=== PATIENT | male | born 1930 | race Caucasian/White ===

== ENCOUNTER 2016-10-13 12:59 | Emergency (ER) | payer MEDICARE, MEDICAID ==
[~2016-10-13] VITALS: Ht 167.6 cm; Wt 72.7 kg
[~2016-10-13 12:59] MED LIST: ACET500C9; AML2.5T; AMLO2.5T PO; ASP81TEC; ASP81TEC PO; ATOR40TA; ATOR40TA PO; BENZ-13 PO; CLPD75T; CLPD75T PO; ECON1POW; HYDR-707 PO; KCL20TCR; LISI10TA PO; LNS30CCR; LORA10TA2; LORA10TA7 PO; LSNP10T; LVT.025T PO; METO100T5 PO; MTP100TCR; MULT1TAB63; NITR0.3T6 SL; NITR0.4T SL; NTR.4SL; OMEP-10; OMEP20CA12 PO; ONDA4TAB8 PO; PNT40TEC PO; POTA20TA15 PO; RT-ALBUINH IH; RT-COMBINH; RT-COMBINH IH; SCR1T1 PO; SULF1TAB38 PO
[2016-10-13] MEDS ORDERED: ASPIRIN 81 MG CHEW (CHILDREN'S ASA) PO ONE (13:15)
[2016-10-13] MEDS ORDERED: RX-NITROGLYCERIN 0.4 MG TAB BTL 25'S SL ONE (13:15)
--- NOTE | 2016-10-13 13:29 | ED Chest Pain ---
General Chief Complaint: Chest Pain Stated Complaint: CP Source: patient, EMS, caregiver Exam Limitations: no limitations History of Present Illness Time seen by provider: 13:04 Initial Comments Here with report of onset of chest pain after noon today near his lunch time. He was given nitroglycerin sublingual which did help his pain. Currently he has this intermittently. Caregiver reports that he has not had much this month ago. Usually takes nitroglycerin. Now reports that that did help but the chest pain is coming back. That is not necessarily typical for him. Denies shortness of breath or vomiting or sweating. Timing/Duration: 1 hour Severity/Quality: moderate, pressure Location: central Radiation: no radiation Activities at Onset: none ASA po SENIOR CARE ASSISTANT: Yes NTG SL SENIOR CARE ASSISTANT: Yes Associated Symptoms: No abdominal pain, No diaphoresis, No nausea/vomiting, No shortness of breath, No weakness Allergies and Home Medications Allergies Coded Allergies: No Known Drug Allergies (Verified , 01/19/09) Home Medications Albuterol Sulfate 8.5 Gm Hfa.aer.ad 2 PUFF IH Q4H PRN PRN WHEEZING (Reported) Albuterol Sulfate 18 Gm Hfa.aer.ad #1 1-2 PUFF IH Q4H PRN PRN SHORTNESS OF BREATH Prescribed by: JACOB POP on 06/29/16 1240 Amlodipine Besylate 2.5 Mg Tablet 5 MG PO BID (Reported) Aspirin 81 Mg Tabec 81 MG PO DAILY (Reported) Benzonatate 100 Mg Capsule #30 100 MG PO Q6H PRN PRN COUGH Prescribed by: JACOB POP on 06/29/16 1240 Clopidogrel 75 Mg Tablet 1 EACH PO DAILY (Reported) Levothyroxine Sodium 25 Mcg Tablet 1 EACH PO DAILY (Reported) Lisinopril 10 Mg Tablet 20 MG PO DAILY (Reported) Loratadine 10 Mg Tablet 10 MG PO DAILY PRN (Reported) Metoprolol Succinate 100 Mg Tab.sr.24h 1 EACH PO DAILY (Reported) Nitroglycerin 0.4 Mg Tab.subl #1 0.4 MG SL Q15M PRN PRN chest pain Prescribed by: JACOB POP on 06/29/16 1240 Pantoprazole Sod 40 Mg Tab 30Days 40 MG PO DAILY (Reported) Potassium Chloride 20 Meq Tab.prt.sr 20 MEQ PO DAILY (Reported) Review of Systems Constitutional: see HPINo chills, No fever EENTM: No Symptoms Reported Respiratory: No Symptoms Reported Cardiovascular: See HPI Chest PainDenies Edema Gastrointestinal: No Symptoms Reported Genitourinary: No Symptoms Reported Musculoskeletal: no symptoms reported All Other Systems Reviewed Negative Unless Noted: Yes Past Ofyobhq-Xwymsj-Avyjmg Hx Patient Social History Alcohol Use: Denies Use Recreational Drug Use: No Smoking Status: Unknown if Ever Smoked Former Smoker/When Quit: Nov 04, 2001 Recent Hopitalizations: No (2 yrs ago) Immunizations Up To Date Tetanus Booster (TDap): Unknown Date of Pneumonia Vaccine: May 05, 2011 Date of Influenza Vaccine: May 05, 2011 Surgeries HX Surgeries: Yes (GB 1998.HIATAL HERNIA 2005,CARDIAC CATH, EGD/SCELROTHERAPY FOR M-MANSFIELD TEAR) Surgeries: Abdominal, Cardiac, Gallbladder Respiratory Hx Respiratory Disorders: Yes Respiratory Disorders: COPD Cardiovascular Hx Cardiac Disorders: Yes (CAROTID STENOSIS) Cardiac Disorders: Coronary Artery Disease, High Cholesterol, Hypertension Neurological Hx Neurological Disorders: Yes (MR) Neurological Disorders: Developmental Disorder Reproductive System Hx Reproductive Disorders: No Sexually Transmitted Disease: No HIV/AIDS: No Genitourinary Hx Genitourinary Disorders: No Gastrointestinal Hx Gastrointestinal Disorders: Yes (SCLEROTHERAPY FOR K[place]-MAN[place]FIELD TEAR) Gastrointestinal Disorders: Gastroesophageal Reflux, Gastrointestinal Bleed, Esophagitis, Hiatal Hernia, Gall Bladder Disease Musculoskeletal Hx Musculoskeletal Disorders: Yes Musculoskeletal Disorders: Arthritis Endocrine Hx Endocrine Disorders: Yes Endocrine Disorders: Hypothyroidsim HEENT HX ENT Disorders: Yes (SENSORINERUAL HEARING LOSS) Hearing Impairment: Denies Cancer Hx Cancer: No Psychosocial Hx Psychiatric Problems: Yes (MENTAL IMPAIRMENT) Integumentary HX Skin/Integumentary Disorder: No Blood Transfusions Hx Blood Disorders: No Reviewed Nursing Assessment Reviewed/Agree w Nursing PMH: Yes Family Medical History Significant Family History: No Pertinent Family Hx Physical Exam Vital Signs Vital Sign - Last 12Hours Capillary Refill : General Appearance: No Apparent Distress Thin HEENT: PERRL/EOMI Pharynx Normal Neck: Non Tender Supple Respiratory: Lungs Clear Normal Breath Sounds Cardiovascular: Regular Rate, Rhythm No Murmur Gastrointestinal: Non Tender Soft Extremity: Non Tender No Calf Tenderness Neurologic/Psychiatric: Alert Oriented x3 Skin: Normal Color Warm/Dry Progress/Results/Core Measures Results/Orders Lab Results Laboratory Tests Test 10/13/16 13:20 Range/Units Activated Partial Thromboplast Time 29 24-35 SEC Alanine Aminotransferase (ALT/SGPT) 12 0-55 U/L Albumin 3.7 3.2-4.5 G/DL Alkaline Phosphatase 80 40-136 U/L Anion Gap 12 5-14 MMOL/L Aspartate Amino Transf (AST/SGOT) 19 5-34 U/L BUN/Creatinine Ratio 14 Basophils # (Auto) 0.0 0.0-0.1 10^3/uL Basophils (%) (Auto) 0 0-10 % Blood Urea Nitrogen 14 7-18 MG/DL Calcium Level 8.5 8.5-10.1 MG/DL Carbon Dioxide Level 21 21-32 MMOL/L Chloride Level 106 98-107 MMOL/L Creatinine 1.00 0.60-1.30 MG/DL D-Dimer 0.97 H 0.00-0.49 UG/ML Eosinophils # (Auto) 0.2 0.0-0.3 10^3/uL Eosinophils (%) (Auto) 3 0-10 % Estimat Glomerular Filtration Rate > 60 Glucose Level 190 H 70-105 MG/DL Hematocrit 39 L 40-54 % Hemoglobin 13.0 L 13.3-17.7 G/DL INR Comment 1.1 0.8-1.4 Lymphocytes # (Auto) 1.8 1.0-4.0 X 10^3 Lymphocytes (%) (Auto) 25 12-44 % Magnesium Level 2.0 1.8-2.4 MG/DL Mean Corpuscular Hemoglobin 29 25-34 PG Mean Corpuscular Hemoglobin Concent 33 32-36 G/DL Mean Corpuscular Volume 87 80-99 FL Mean Platelet Volume 10.8 H 7.4-10.4 FL Monocytes # (Auto) 0.5 0.0-1.0 X 10^3 Monocytes (%) (Auto) 6 0-12 % Myoglobin 37.2 10.0-92.0 NG/ML Neutrophils # (Auto) 4.8 1.8-7.8 X 10^3 Neutrophils (%) (Auto) 66 42-75 % Platelet Count 215 130-400 10^3/uL Potassium Level 3.5 L 3.6-5.0 MMOL/L Prothrombin Time 13.5 12.2-14.7 SEC Red Blood Count 4.51 4.35-5.85 10^6/uL Red Cell Distribution Width 14.9 H 10.0-14.5 % Sodium Level 139 135-145 MMOL/L Total Bilirubin 0.7 0.1-1.0 MG/DL Total Protein 6.7 6.4-8.2 G/DL Troponin I < 0.30 <0.30 NG/ML White Blood Count 7.4 4.3-11.0 10^3/uL My Orders Orders-GABRIEL CLARK MD Cbc With Automated Diff (10/13/16 13:13) Magnesium (10/13/16 13:13) Chest 1 View, Ap/Pa Only (10/13/16 13:13) Ekg Tracing (10/13/16 13:13) Cardiac Profile 1 (10/13/16 13:13) Comprehensive Metabolic Panel (10/13/16 13:13) Myoglobin Serum (10/13/16 13:13) Protime With Inr (10/13/16 13:13) Partial Thromboplastin Time (10/13/16 13:13) O2 (10/13/16 13:13) Monitor-Rhythm Ecg Trace Only (10/13/16 13:13) Lipid Panel (10/14/16 06:00) Aspirin Chewable Tablet (Baby Aspirin Ch (10/13/16 13:15) Rx-Nitroglycerin Sl Tabs (Rx-Nitrostat S (10/13/16 13:15) Saline Lock/Iv-Start (10/13/16 13:13) Fibrin Degradation Products (10/13/16 13:13) Ct Angio Chest W (10/13/16 14:40) Saline Lock/Iv-Start (10/13/16 14:40) Ns Iv 1000 Ml (Sodium Chloride 0.9%) (10/13/16 14:40) Iohexol Injection (Omnipaque 350 Mg/Ml 1 (10/13/16 14:45) Ns (Ivpb) (Sodium Chloride 0.9% Ivpb Bag (10/13/16 14:45) Sodium Chloride Flush (Catheter Flush Sy (10/13/16 14:45) Medications Given in ED Current Medications Medications Dose Ordered Sig/Niya Route Start Time Stop Time Status Last Admin Dose Admin Aspirin 324 mg ONCE ONCE PO 10/13/16 13:15 10/13/16 13:16 DC 10/13/16 13:30 324 MG Iohexol 150 ml ONCE ONCE IV 10/13/16 14:45 10/13/16 14:46 DC 10/13/16 15:02 125 ML Nitroglycerin 0.4 mg 0.4 mg UD ONCE SL 10/13/16 13:15 10/13/16 13:16 DC 10/13/16 13:30 0.4 MG Sodium Chloride 100 ml ONCE ONCE IV 10/13/16 14:45 10/13/16 14:46 DC 10/13/16 15:03 80 ML Sodium Chloride 1,000 ml @ 0 mls/hr Q0M ONCE IV 10/13/16 14:40 10/13/16 14:41 DC 10/13/16 14:55 0 MLS/HR Vital Signs/I&O Vital Sign - Last 12Hours 10/13/16 10/13/16 10/13/16 13:00 13:00 13:00 Temp 98.1 Pulse 75 Resp 20 B/P 158/100 Pulse Ox 92 95 O2 Delivery Room Air Room Air Nasal Cannula O2 Flow Rate 2 2 Progress Note : Progress Note Seen and evaluated. IV, labs, EKG and chest x-ray ordered. ASA and nitroglycerin sublingual ordered. Monitor patient. D-dimer slightly elevated. Will saline [address] angiogram chest ordered. 1600: No acute findings. CT negative for pulmonary embolism and patient is doing much better. Does have known intermittent angina and nitroglycerin prescribed. His heart doctor is Dr. Ventura. We'll discharge him home with follow-up with Dr. Ventura this week. Copy of chart to Dr. Ventura. Caregiver given instructions and verbalizes understanding. Discharged home with return precautions. Patient verbalize understanding instructions and agreement with plan. ECG Initial ECG Impression Date: Oct 13, 2016 Initial ECG Impression Time: 13:08 Initial ECG Rate: 77 Comment Sinus rhythm with normal axis. No evidence of ST elevation OH. Overall similar to previous of 06/29/16. Interpreted by me. Diagnostic Imaging Diagonstic Imaging: Xray Plain Films/CT/US/NM/MRI: chest Comments VIA [facility], [facility] [place], [place] NAME: NAMRATA CARLOS [facility] REC#: [id number] PT STATUS: REG ER : 1930 PHYSICIAN: GABRIEL CLARK MD ADMIT DATE: 10/13/16/ER Draft Date of Exam:10/13/16 CHEST 1 VIEW, AP/PA ONLY INDICATION: Chest pain. TECHNIQUE: Single view chest 1:35 PM. CORRELATION STUDY: 06/29/2016 FINDINGS: Heart size enlarged with left ventricular configuration. Vascular slightly increased from prior study. Areas of likely atelectasis at both lung bases without definitive focal infiltrate. Degenerative change of the right shoulder. IMPRESSION: 1. Cardiac enlargement with vascular slightly increased from prior study. Minimal basilar atelectasis. Dictated on workstation # [id number] Dict: 10/13/16 1344 Trans: 10/13/16 1436 JUAN ALBERTO [id number] Interpreted by: LORENA BABB DO Electronically signed by: Óscar Imaging: CT Plain Films/CT/US/NM/MRI: chest Comments VIA [place], [place] NAME: NAMRATA CARLOS [facility] REC#: [id number] PT STATUS: REG ER : 1930 PHYSICIAN: GABRIEL CLARK MD ADMIT DATE: 10/13/16/ER Draft Date of Exam:10/13/16 CT ANGIO CHEST W PROCEDURE: CT angiography of the chest with contrast. TECHNIQUE: Multiple contiguous axial images were obtained through the chest after uneventful bolus administration of intravenous contrast. Reconstructed CTA MIP acquisitions were also performed. INDICATION: Chest pain. CORRELATION STUDY: 06/05/2007. FINDINGS: No pulmonary arterial filling defect to suggest pulmonary embolism. Thoracic aorta id unremarkable. Heart size is enlarged. Moderate-sized hiatal hernia. Calcified mediastinal lymph nodes. Lung barajas with minimal basilar atelectasis. No significant infiltrate. Visualized portion of the upper abdomen is unremarkable. Multiple level degenerative changes about the thoracic spine with bony demineralization. IMPRESSION: 1. No CT evidence for pulmonary embolism. Thoracic aorta is unremarkable. 2. Cardiac enlargement. 3. Moderate-sized hiatal hernia. Dictated on workstation # [id number] Dict: 10/13/16 1547 Trans: 10/13/16 1557 PJ [id number] Interpreted by: LORENA BABB DO Electronically signed by: Departure Impression Impression: Primary Impression: Chest pain Qualified Code: R07.9 - Chest pain, unspecified Disposition: 01 HOME, SELF-CARE Condition: Improved Departure-Patient Inst. Decision time for Depature: 16:24 Referrals: [facility] (PCP/Family) Primary Care Physician ARTHUR VENTURA MD Patient Instructions: Chest Pain (DC) Add. Discharge Instructions: All discharge instructions reviewed with patient and/or family. Voiced understanding. It is very important that he follow up with Dr. Ventura this week for recheck and further evaluation. Return for worse pain, persistent chest pain, weakness, breathing problems, sweating or other concerns as needed. Continue home medications as directed. Copy Copies To 1: ARTHUR VENTURA MD, TIMOTHY D MD Oct 13, 2016 13:29
[2016-10-13 13:32] LABS: BASOPHILS % (AUTO) 0 % (0-10); EOSINOPHILS # (AUTO) 0.2 10^3/uL (0.0-0.3); EOSINOPHILS % (AUTO) 3 % (0-10); LYMPHOCYTES # (AUTO) 1.8 X 10^3 (1.0-4.0); LYMPHOCYTES % (AUTO) 25 % (12-44); MEAN CORPUSCULAR HEMOGLOBIN 29 PG (25-34); MEAN CORPUSCULAR HGB CONC 33 G/DL (32-36); MEAN CORPUSCULAR VOLUME 87 FL (80-99); MEAN PLATELET VOLUME 10.8 FL (7.4-10.4); MONOCYTES # (AUTO) 0.5 X 10^3 (0.0-1.0); MONOCYTES % (AUTO) 6 % (0-12); NEUTROPHILS # (AUTO) 4.8 X 10^3 (1.8-7.8); NEUTROPHILS % (AUTO) 66 % (42-75); PLATELET COUNT 215 10^3/uL (130-400); RED BLOOD COUNT 4.51 10^6/uL (4.35-5.85); RED CELL DISTRIBUTION WIDTH 14.9 % (10.0-14.5); WHITE BLOOD COUNT 7.4 10^3/uL (4.3-11.0)
[2016-10-13 13:41] LABS: INR 1.1 (0.8-1.4); PROTHROMBIN TIME PATIENT 13.5 SEC (12.2-14.7)
[2016-10-13 13:49] LABS: ALANINE AMINOTRANSFERASE 12 U/L (0-55); ALBUMIN 3.7 G/DL (3.2-4.5); ANION GAP 12 MMOL/L (5-14); ASPARTATE AMINO TRANSFERASE 19 U/L (5-34); BILIRUBIN,TOTAL 0.7 MG/DL (0.1-1.0); BLOOD UREA NITROGEN 14 MG/DL (7-18); BUN/CREATININE RATIO 14; CALCIUM 8.5 MG/DL (8.5-10.1); CARBON DIOXIDE 21 MMOL/L (21-32); CHLORIDE 106 MMOL/L (98-107); GFR ESTIMATED > 60; GLUCOSE 190 MG/DL (70-105); POTASSIUM 3.5 MMOL/L (3.6-5.0); SODIUM 139 MMOL/L (135-145); TOTAL PROTEIN 6.7 G/DL (6.4-8.2)
[2016-10-13 13:55] LABS: MYOGLOBIN SERUM 37.2 NG/ML (10.0-92.0)
--- NOTE | 2016-10-13 14:36 | Diagnostic Imaging Report ---
INDICATION: Chest pain. TECHNIQUE: Single view chest 1:35 PM. CORRELATION STUDY: 06/29/2016 FINDINGS: Heart size enlarged with left ventricular configuration. Vascular slightly increased from prior study. Areas of likely atelectasis at both lung bases without definitive focal infiltrate. Degenerative change of the right shoulder. IMPRESSION: 1. Cardiac enlargement with vascular slightly increased from prior study. Minimal basilar atelectasis. Dictated by: Dictated on workstation # [id number]
[2016-10-13] MEDS ORDERED: NS IV 1000 ML 1,000 ML IV ONE (14:40)
[2016-10-13] MEDS ORDERED: IOHEXOL 350 MG/ML 150 ML (OMNIPAQUE 350) VIAL IV ONE (14:45)
[2016-10-13] MEDS ORDERED: CATHETER FLUSH 10 ML SYR IV PRN (14:45)
[2016-10-13] MEDS ORDERED: NS 100 ML (IVPB) BAG IV ONE (14:45)
--- NOTE | 2016-10-13 15:57 | Diagnostic Imaging Report ---
PROCEDURE: CT angiography of the chest with contrast. TECHNIQUE: Multiple contiguous axial images were obtained through the chest after uneventful bolus administration of intravenous contrast. Reconstructed CTA MIP acquisitions were also performed. INDICATION: Chest pain. CORRELATION STUDY: 06/05/2007. FINDINGS: No pulmonary arterial filling defect to suggest pulmonary embolism. Thoracic aorta id unremarkable. Heart size is enlarged. Moderate-sized hiatal hernia. Calcified mediastinal lymph nodes. Lung barajas with minimal basilar atelectasis. No significant infiltrate. Visualized portion of the upper abdomen is unremarkable. Multiple level degenerative changes about the thoracic spine with bony demineralization. IMPRESSION: 1. No CT evidence for pulmonary embolism. Thoracic aorta is unremarkable. 2. Cardiac enlargement. 3. Moderate-sized hiatal hernia. Dictated by: Dictated on workstation # [id number]
[2016-10-13 16:35] VITALS: BP 149/84
== END 2016-10-13 16:39 | disposition home or self-care (01) ==
LOC: EDUNIT# 12:59 → ER 13:00
DX: R07.9 Chest pain, unspecified (principal); I51.7 Cardiomegaly; K44.9 Diaphragmatic hernia without obstruction or gangrene; I25.10 Atherosclerotic heart disease of native coronary artery without angina pectoris; I10 Essential (primary) hypertension; J44.9 Chronic obstructive pulmonary disease, unspecified; Z79.82 Long term (current) use of aspirin; Z79.02 Long term (current) use of antithrombotics/antiplatelets; Z79.899 Other long term (current) drug therapy
CPT/HCPCS: 36415; 71010; 71275; 80053; 83735; 83874; 84484; 85025; 85379; 85610; 85730; 93005; 93041; 96360

== ENCOUNTER → 2016-11-27 | Outpatient (CLI) | payer MEDICARE, MEDICAID ==
--- NOTE | 2016-11-28 08:27 | ECHOCARDIOGRAPHY REPORT ---
DATE OF SERVICE: 11/27/2016 PROCEDURE: 2D Echocardiogram REFERRING PHYSICIAN: [facility] MEASUREMENT: LVID end diastolic 4.8, IVS thickness 1.1, LVPW thickness 1, left atrial diameter 3.8, ejection fraction 60%. FINDINGS: 1. Technical quality is good. 2. The left ventricle is normal in size with normal contractility, systolic function appeared to be normal. Estimated ejection fraction 60%. 3. The left atrium is normal in size. No clot or thrombus were seen within the left atrium. 4. The right atrium and right ventricle are normal in size. No clot or thrombus were seen within the right side. 5. The mitral valve is normal in morphology with mild mitral regurgitation noted by color Doppler flow. No mitral valve prolapse. No mitral valve stenosis. 6. The aortic valve is trileaflet with normal opening and closing pattern. No significant aortic stenosis or regurgitation was seen. 7. The tricuspid valve is normal in morphology with no tricuspid regurgitation noted by color Doppler flow. Doppler across tricuspid valve estimated pulmonary artery pressure of 24 plus right atrial pressure. 8. Pulmonic valve is functioning normally. 9. No pericardial effusion. IN CONCLUSION: 1. Normal left ventricular size and systolic function, estimated ejection fraction 60%. 2. Mild mitral and tricuspid regurgitation. 3. Estimated pulmonary artery pressure of 30 mmHg. Job ID: [id number] DocumentID: [id number] Dictated Date: 11/27/2016 15:09:43 Climate Change Analyst Date: 11/28/2016 07:21:54 Dictated By: ARTHUR KENDALL MD
== END ==
LOC: CARD 11:53
PROVIDERS: ATTEND Internal Medicine Cardiovascular Disease
DX: I25.10 Atherosclerotic heart disease of native coronary artery without angina pectoris (principal); I65.23 Occlusion and stenosis of bilateral carotid arteries; I10 Essential (primary) hypertension; E78.2 Mixed hyperlipidemia; R55 Syncope and collapse
CPT/HCPCS: 93306

== ENCOUNTER → 2016-11-28 | Outpatient (CLI) | payer MEDICARE, MEDICAID ==
[~2016-11-28] VITALS: Ht 167.6 cm; Wt 72.6 kg
[~2016-11-28] MED LIST changes: +CATHETER FLUSH 10 ML SYR IV PRN; +REGADENOSON 0.4 MG/5 ML SYR (LEXISCAN) IV ONE
[2016-11-28 09:58] VITALS: BP 179/100
[2016-11-28 10:02] VITALS: BP 175/83
[2016-11-28 10:04] VITALS: BP 142/86
--- NOTE | 2016-11-29 13:29 | STRESS TEST ---
DATE OF SERVICE: 11/28/2016 LEXISCAN MYOVIEW STRESS TEST REPORT Baseline heart rate is 70. Baseline blood pressure 179/100. Baseline EKG is sinus rhythm with no ischemic changes. SUMMARY: The patient received 10.78 mCi of technetium-99. Myoview and resting images were obtained. Then the patient received 0.4 mg of Lexiscan followed by 30.9 mCi of technetium-99 Myoview. Throughout the test there were no EKG changes. The resting and stress images were reviewed and compared in the short axis, horizontal long axis and vertical long axis views. Reviewed of the images showed good radiotracer uptake with diaphragmatic attenuation. No significant ischemia or infarction was noted. SSS is 3, SDS 3, TID value 0.93. On the gated images, the left ventricle appeared to be normal size with normal contractility. Calculated ejection fraction 57%. CONCLUSION: 1. The patient tolerated Lexiscan well. 2. Diaphragmatic attenuation with no significant ischemia or infarction one SPECT images. 3. Normal left ventricular size with normal contractility. Calculated ejection fraction 57%. Job ID: [id number] DocumentID: [id number] Dictated Date: 11/28/2016 14:17:54 Health Care Administrator Date: 11/29/2016 07:20:02 Dictated By: ARTHUR KENDALL MD
== END ==
LOC: CARD 08:07
PROVIDERS: ATTEND Internal Medicine Cardiovascular Disease
DX: I25.10 Atherosclerotic heart disease of native coronary artery without angina pectoris (principal); I65.23 Occlusion and stenosis of bilateral carotid arteries; I10 Essential (primary) hypertension; E78.2 Mixed hyperlipidemia; R55 Syncope and collapse
CPT/HCPCS: 78452; 93017

== ENCOUNTER 2017-05-02 02:44 | Emergency (ER) | payer MEDICARE, MEDICAID ==
[~2017-05-02] VITALS: Ht 167.6 cm; Wt 72.6 kg
[~2017-05-02 02:44] MED LIST changes: -CATHETER FLUSH 10 ML SYR IV PRN; -REGADENOSON 0.4 MG/5 ML SYR (LEXISCAN) IV ONE
--- OUTSIDE RECORDS SUMMARY | 2017-05-02 02:48 | XMS REPORT ---
Author Author VAUGHN MONTIEL [facility] eClinicalWorks Address Unknown Phone Unavailable Care Team Providers Care Remote Encoding Operations Supervisor Name Role Phone VAUGHN MONTIEL CP Unavailable Allergies, Adverse Reactions, Alerts Substance Reaction Event Type N.K.D.A. 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, unspecified 440.20 Active Problem Routine general medical examination at health care facility V70.0 Active Medications Medication Code System Code Instructions Start Date End Date Status Dosage Clopidogrel Bisulfate [facility] 47655280860 75 MG take 1 tablet (75 mg ) by oral route once daily Synthroid [facility] [id number] 25 MCG 1 tablet by Oral route 1 time per day Aspir-81 [facility] [address]-57 81 MG Orally Once a day 1 tablet Amlodipine Besylate [facility] [id number] 5 MG take 1 tablet by Oral route 2 times per day Potassium Chloride Sejal ER [facility] 54032392671 20 MEQ 1 tablet by Oral route 1 time per day Aspirin Adult Low Strength [facility] 42736111485 81 MG 1 tablet by Oral route 1 time per day Loratadine [facility] [address]-63 10 MG 2 times a day Jun 09, 2012 Jun 28, 2015 take 1 tablet (10 mg) by oral route once daily Albuterol Sulfate HFA [facility] [address]-57 108 (90 Base) MCG/ACT Inhalation 4 times a day 2 puffs as needed Lisinopril [facility] 23934310392 20 MG take 1 tablet by Oral route 1 time per day Metoprolol Succinate ER [facility] 81133682483 100 MG take 1 tablet ( 100 mg) by oral route once daily Singulair [facility] [address]-92 10 MG Orally Once a day in the evening Apr 1 tablet in the evening Pantoprazole Sodium [facility] 46200336407 40 MG TAKE 1 TABLET ORALLY DAILY Procedures Procedure Coding System Code Date Office Visit, Est Pt., Level 3 CPT-4 77810 May 03, 2015 Vital Signs Date/Time: May 03, 2015 Temperature 98 F Weight 166.8 lbs Height 67 in BMI 26.12 Index Blood Pressure Diastolic 82 mmHg Blood Pressure Systolic 128 mmHg Results No Known Results Summary Purpose eClinicalWorks Submission
--- OUTSIDE RECORDS SUMMARY | 2017-05-02 02:48 | XMS REPORT ---
Author Author BRENNAN CORONADO [facility] Address [address] [place] [address] Care Team Providers Care Motor Power Connector Name Role Phone BRENNAN CORONADO Unavailable PROBLEMS Type Condition ICD9-CM Code THV41-UX Code Onset Dates Condition Status SNOMED Code Problem Neuropathy G62.9 Active 821289385 Problem Encounter for dental examination and cleaning without abnormal findings Z01.20 Active 130874562 Problem Chronic obstructive pulmonary disease, unspecified COPD type J44.9 Active 33952528 Assessment Syncope, unspecified syncope type R55 Jun, Active 468809473 Problem Coronary artery disease involving mcgrath coronary artery of mcgrath heart without angina pectoris I25.10 Active 9169833861412 Problem Gastroesophageal reflux disease without esophagitis K21.9 Active 909422031 ALLERGIES Substance Reaction Event Type Date Status N.K.D.A. Unknown Non Drug Allergy Jun, Unknown SOCIAL HISTORY No smoking Hx information available PLAN OF CARE VITAL SIGNS Height 67 in 2016-07-02 Weight 152.9 lbs 2016-07-02 Heart Rate 60 bpm 2016-07-02 Respiratory Rate 20 2016-07-02 BMI 23.94 kg/m2 2016-07-02 Blood pressure systolic 118 mmHg 2016-07-02 Blood pressure diastolic 72 mmHg 2016-07-02 MEDICATIONS Medication Instructions Dosage Frequency Start Date End Date Duration Status Potassium Chloride Sejal ER 20 MEQ 1 tablet by Oral route 1 time per day 31 Active Pantoprazole Sodium 40 MG TAKE 1 TABLET ORALLY DAILY 31 Active Nitroglycerin 0.4 MG Active Synthroid 25 MCG 1 tablet by Oral route 1 time per day 31 Active Aspirin Adult Low Strength 81 MG 1 tablet by Oral route 1 time per day 30 Active Benzonatate 100 MG Active Clopidogrel Bisulfate 75 MG take 1 tablet (75 mg) by oral route once daily 31 Active Lisinopril 20 MG take 1 tablet by Oral route 1 time per day 31 Active Metoprolol Succinate ER 100 MG take 1 tablet (100 mg) by oral route once daily 30 Active Albuterol Sulfate HFA 108 (90 Base) MCG/ACT Inhalation 4 times a day 2 puffs as needed 6h 14 days Active Singulair 10 MG Orally Once a day in the evening 1 tablet in the evening Apr, 30 day(s) Active RESULTS No Results PROCEDURES Procedure Date Ordered Related Diagnosis Body Site [facility] VISIT ESTABLISHED PATIENT Jul 02, 2016 Office Visit, Est Pt., Level 3 Jul 02, 2016 IMMUNIZATIONS No Known Immunizations
--- OUTSIDE RECORDS SUMMARY | 2017-05-02 02:49 | XMS REPORT ---
Author Author VAUGHN MONTIEL [facility] Address [address] [place] [address] Care Team Providers Care Regional Director Of Finance Name Role Phone VAUGHN MONTIEL Unavailable PROBLEMS Type Condition ICD9-CM Code [id number] Code Onset Dates Condition Status SNOMED Code Problem Gastroesophageal reflux disease without esophagitis K21.9 Active 948103837 Problem Chronic obstructive pulmonary disease, unspecified COPD type J44.9 Active 67321439 Problem Hypokalemia E87.6 Active 60414988 Problem Acquired hypothyroidism E03.9 Active 681576758 Problem Encounter for dental examination and cleaning without abnormal findings Z01.20 Active 284391645 Problem Coronary artery disease involving [place] coronary artery of [place] heart without angina pectoris I25.10 Active 8092216952016 Problem Other hammer toe(s) (acquired), right foot M20.41 Active 544636136 Problem Neuropathy G62.9 Active 142852932 ALLERGIES Substance Reaction Event Type Date Status N.K.D.A. Unknown Non Drug Allergy Jul, Unknown SOCIAL HISTORY No smoking Hx information available PLAN OF CARE Activity Details Follow Up prn Reason: VITAL SIGNS Height 67 in 2016-08-02 Weight 156.2 lbs 2016-08-02 Temperature 97.9 degrees Fahrenheit 2016-08-02 Heart Rate 80 bpm 2016-08-02 Respiratory Rate 20 2016-08-02 BMI 24.46 kg/m2 2016-08-02 Blood pressure systolic 146 mmHg 2016-08-02 Blood pressure diastolic 86 mmHg 2016-08-02 MEDICATIONS Medication Instructions Dosage Frequency Start Date End Date Duration Status Synthroid 25 MCG 1 tablet by Oral route 1 time per day 31 Active Potassium Chloride Sejal ER 20 MEQ 1 tablet by Oral route 1 time per day 31 Active Pantoprazole Sodium 40 MG TAKE 1 TABLET ORALLY DAILY 31 Active Lisinopril 20 MG take 1 tablet by Oral route 1 time per day 31 Active Aspirin Adult Low Strength 81 MG 1 tablet by Oral route 1 time per day 30 Active Benzonatate 100 MG Active Metoprolol Succinate ER 100 MG take 1 tablet (100 mg) by oral route once daily 30 Active Albuterol Sulfate HFA 108 (90 Base) MCG/ACT Inhalation 4 times a day 2 puffs as needed 6h 14 days Active Nitroglycerin 0.4 MG Active Singulair 10 MG Orally Once a day in the evening 1 tablet in the evening Apr, 30 day(s) Active Clopidogrel Bisulfate 75 MG take 1 tablet (75 mg) by oral route once daily 31 Active RESULTS No Results PROCEDURES Procedure Date Ordered Related Diagnosis Body Site [facility] VISIT ESTABLISHED PATIENT Aug 02, 2016 Office Visit, Est Pt., Level 3 Aug 02, 2016 SINGLE IMMUNIZATION ADMIN Aug 02, 2016 FLUZONE HIGH DOSE 65 AND UP 2015Aug 02, 2016 IMMUNIZATIONS Vaccine Route Administration Date Status FLUZONE HIGH DOSE 65 AND UP 2015 IM Intramuscular Aug 02, 2016 Administered
--- OUTSIDE RECORDS SUMMARY | 2017-05-02 02:49 | XMS REPORT ---
Author Author MAMADOU JOSE Organization [facility] Address [address] [place] [address] Care Team Providers Care Equity Structurer Name Role Phone MAMADOU JOSE Unavailable PROBLEMS Type Condition ICD9-CM Code [id number] Code Onset Dates Condition Status SNOMED Code Problem Gastroesophageal reflux disease without esophagitis K21.9 Active 563836625 Problem Chronic obstructive pulmonary disease, unspecified COPD type J44.9 Active 32527678 Problem Hypokalemia E87.6 Active 90599491 Problem Acquired hypothyroidism E03.9 Active 966134308 Problem Encounter for dental examination and cleaning without abnormal findings Z01.20 Active 235274271 Problem Coronary artery disease involving [place] coronary artery of [place] heart without angina pectoris I25.10 Active 9232686019001 Problem Other hammer toe(s) (acquired), right foot M20.41 Active 259326397 Problem Neuropathy G62.9 Active 344142970 ALLERGIES Unknown Allergies SOCIAL HISTORY No smoking Hx information available PLAN OF CARE Activity Details Follow Up 3 Months Reason: VITAL SIGNS Height 67 in 2016-07-06 Blood pressure systolic 138 mmHg 2016-07-06 Blood pressure diastolic 80 mmHg 2016-07-06 MEDICATIONS Unknown Medications RESULTS No Results PROCEDURES Procedure Date Ordered Related Diagnosis Body Site DEBRIDE NAIL, 6 OR MORE Jul 06, 2016 [facility] VISIT ESTABLISHED PATIENT Jul 06, 2016 Office Visit, Est Pt., Level 3 Jul 06, 2016 IMMUNIZATIONS No Known Immunizations
--- OUTSIDE RECORDS SUMMARY | 2017-05-02 02:49 | XMS REPORT ---
Author Author VAUGHN MONTIEL Organization [employer] Address Unknown Phone Unavailable Care Team Providers Care Bread Room Hand Name Role Phone VAUGHN MONTIEL CP Unavailable Allergies No Known Allergies Problems Problem Type Condition ICD-9 Code Onset Dates Condition Status Problem Acute bronchitis 466.0 Active Problem Pain in joint, shoulder region 719.41 Active Problem Need for prophylactic vaccination and inoculation, Influenza V04.81 Active Problem Urinary tract infection, site not specified 599.0 Active Problem Pain in soft tissues of limb 729.5 Active Problem Atherosclerosis of [place] arteries of the extremities, unspecified 440.20 Active Problem Routine general medical examination at health care facility V70.0 Active Medications No Known Medications Vital Signs Date/Time: Apr 20, 2015 BMI 26.12 Index Weight 166.8 lbs Height 67 in Results No Known Results Summary Purpose [employer] Submission
--- OUTSIDE RECORDS SUMMARY | 2017-05-02 02:49 | XMS REPORT ---
Author Author MAMADOU JOSE Organization [employer] Address Unknown Phone Unavailable Care Team Providers Care Furnace Puncher Name Role Phone MAMADOU JOSE CP Unavailable Allergies No Known Allergies Problems Problem Type Condition ICD-9 Code Onset Dates Condition Status Assessment Hammertoe 735.4 Active Assessment Onychomycosis 110.1 Active Assessment Neuropathy 355.9 Active Problem Acute bronchitis 466.0 Active Problem Pain in joint, shoulder region 719.41 Active Problem Need for prophylactic vaccination and inoculation, Influenza V04.81 Active Problem Urinary tract infection, site not specified 599.0 Active Problem Pain in soft tissues of limb 729.5 Active Problem Atherosclerosis of [place] arteries of the extremities, unspecified 440.20 Active Problem Routine general medical examination at health care facility V70.0 Active Medications No Known Medications Procedures Procedure Coding System Code Date Office Visit, Est Pt., Level 3 CPT-4 31392 Apr 15, 2015 DEBRIDE NAIL, 6 OR MORE CPT-4 07195 Apr 15, 2015 Vital Signs Date/Time: Apr 15, 2015 Blood Pressure Diastolic 68 mmHg Blood Pressure Systolic 104 mmHg Height 67 in Results Name Result Date Reference Range Unit Abnormality Flag DEBRIDE NAIL >6 Summary Purpose [employer] Submission
[2017-05-02] MEDS ORDERED: NS IV 1000 ML 1,000 ML IV ONE (02:51)
[2017-05-02 03:10] LABS: BASOPHILS % (AUTO) 0 % (0-10); EOSINOPHILS # (AUTO) 0.2 10^3/uL (0.0-0.3); EOSINOPHILS % (AUTO) 2 % (0-10); LYMPHOCYTES # (AUTO) 2.3 X 10^3 (1.0-4.0); LYMPHOCYTES % (AUTO) 26 % (12-44); MEAN CORPUSCULAR HEMOGLOBIN 29 PG (25-34); MEAN CORPUSCULAR HGB CONC 32 G/DL (32-36); MEAN CORPUSCULAR VOLUME 90 FL (80-99); MEAN PLATELET VOLUME 10.4 FL (7.4-10.4); MONOCYTES # (AUTO) 0.5 X 10^3 (0.0-1.0); MONOCYTES % (AUTO) 6 % (0-12); NEUTROPHILS % (AUTO) 66 % (42-75); PLATELET COUNT 227 10^3/uL (130-400); RED BLOOD COUNT 4.16 10^6/uL (4.35-5.85); RED CELL DISTRIBUTION WIDTH 14.5 % (10.0-14.5)
[2017-05-02 03:30] LABS: ALANINE AMINOTRANSFERASE 13 U/L (0-55); ALBUMIN 3.8 GM/DL (3.2-4.5); ANION GAP 13 MMOL/L (5-14); ASPARTATE AMINO TRANSFERASE 15 U/L (5-34); BILIRUBIN,TOTAL 0.7 MG/DL (0.1-1.0); BLOOD UREA NITROGEN 14 MG/DL (7-18); BUN/CREATININE RATIO 13; CARBON DIOXIDE 23 MMOL/L (21-32); CHLORIDE 107 MMOL/L (98-107); CREATININE SERUM 1.11 MG/DL (0.60-1.30); GFR ESTIMATED > 60; GLUCOSE 157 MG/DL (70-105); LIPASE 39 U/L (8-78); MAGNESIUM 2.2 MG/DL (1.8-2.4); POTASSIUM 3.6 MMOL/L (3.6-5.0); SODIUM 143 MMOL/L (135-145); TOTAL PROTEIN 6.7 GM/DL (6.4-8.2)
--- NOTE | 2017-05-02 04:01 | ED General ---
General Stated Complaint: FALL,UNRESPONSIVE Source of Information: Patient Exam Limitations: No Limitations History of Present Illness Time Seen by Provider: 02:45 Initial Comments Here with report of not feeling well tonight. He got up to go to the bathroom and apparently twisted his knee and then fell to the ground. Apparently afterwards he got sweaty. Caregivers at the home gave him 2 nitroglycerin sublingual due to sweating. He denies chest pain. Does complain of knee pain which precipitated the event of the vomiting and sweating. He is apparently sick earlier in the evening as well. Patient denies any current complaints of her right knee pain mild. No report of hitting head and patient denies any complaint to head. Timing/Duration: 1 Hour Severity: Mild, Moderate Associated Systoms: No Cough, No Fever/Chills, Nausea/Vomiting, No Shortness of Air Allergies and Home Medications Allergies Coded Allergies: No Known Drug Allergies (Verified , 01/19/09) Home Medications Albuterol Sulfate 8.5 Gm Hfa.aer.ad, 2 PUFF IH Q4H PRN for WHEEZING, (Reported) Albuterol Sulfate 18 Gm Hfa.aer.ad, 1-2 PUFF IH Q4H PRN for SHORTNESS OF BREATH , #1 Ref 0 Prescribed by: JACOB POP on 06/29/16 1240 Amlodipine Besylate 2.5 Mg Tablet, 5 MG PO BID, Ref 0 (Reported) Aspirin 81 Mg Tabec, 81 MG PO DAILY, (Reported) Benzonatate 100 Mg Capsule, 100 MG PO Q6H PRN for COUGH, #30 Ref 0 Prescribed by: JACOB POP on 06/29/16 1240 Clopidogrel 75 Mg Tablet, 1 EACH PO DAILY, (Reported) Levothyroxine Sodium 25 Mcg Tablet, 1 EACH PO DAILY, (Reported) Lisinopril 10 Mg Tablet, 20 MG PO DAILY, Ref 0 (Reported) Loratadine 10 Mg Tablet, 10 MG PO DAILY PRN, Ref 0 (Reported) Metoprolol Succinate 100 Mg Tab.sr.24h, 1 EACH PO DAILY, (Reported) Nitroglycerin 0.4 Mg Tab.subl, 0.4 MG SL Q15M PRN for chest pain, #1 Ref 0 Prescribed by: JACOB POP on 06/29/16 1240 Pantoprazole Sod 40 Mg Tab, 40 MG PO DAILY for 30 Days, Ref 2 (Reported) Potassium Chloride 20 Meq Tab.prt.sr, 20 MEQ PO DAILY, (Reported) Constitutional: see HPI, No fever EENTM: no symptoms reported Respiratory: no symptoms reported Cardiovascular: see HPI, No chest pain, No edema Gastrointestinal: No abdominal pain, nausea, vomiting Genitourinary: no symptoms reported Musculoskeletal: joint pain, No joint swelling, No muscle pain Skin: no symptoms reported Psychiatric/Neurological: Weakness Hematologic/Lymphatic: No Symptoms Reported All Other Systems Reviewed Negative Unless Noted: Yes Past Puuyozt-Bsfxrz-Jelgke Hx Patient Social History Alcohol Use: Denies Use Recreational Drug Use: No Smoking Status: Never a Smoker 2nd Hand Smoke Exposure: No Recent Foreign Travel: No Contact w/Someone Who Travel: No Recent Hopitalizations: No Immunizations Up To Date Tetanus Booster (TDap): Unknown Date of Pneumonia Vaccine: May 05, 2011 Date of Influenza Vaccine: May 05, 2016 Surgeries History of Surgeries: Yes Surgeries: Abdominal, Cardiac, Gallbladder Respiratory History of Respiratory Disorde: Yes Respiratory Disorders: COPD Cardiovascular History of Cardiac Disorders: Yes Cardiac Disorders: Coronary Artery Disease, High Cholesterol, Hypertension Neurological History of Neurological Disord: Yes Neurological Disorders: Developmental Disorder Reproductive System Hx Reproductive Disorders: No Sexually Transmitted Disease: No HIV/AIDS: No Genitourinary History of Genitourinary Disor: No Gastrointestinal History of Gastrointestinal Di: Yes Gastrointestinal Disorders: Gastroesophageal Reflux, Gastrointestinal Bleed, Esophagitis, Hiatal Hernia, Gall Bladder Disease Musculoskeletal History of Musculoskeletal Dis: Yes Musculoskeletal Disorders: Arthritis Endocrine History of Endocrine Disorders: Yes Endocrine Disorders: Hypothyroidsim HEENT History of HEENT Disorders: No Hearing Impairment: Denies Cancer History of Cancer: No Reviewed Nursing Assessment Reviewed/Agree w Nursing PMH: Yes Family Medical History Significant Family History: No Pertinent Family Hx Physical Exam Vital Signs Vital Sign - Last 12Hours Capillary Refill : General Appearance: No Apparent Distress, WD/WN HEENT: PERRL/EOMI, Pharynx Normal Neck: Non Tender, Supple Respiratory: Lungs Clear, Normal Breath Sounds Cardiovascular: Regular Rate, Rhythm, No Murmur Gastrointestinal: Non Tender, Soft Back: Normal Inspection, No CVA Tenderness, No Vertebral Tenderness Extremity: No Pedal Edema, No Swelling, Other (mild tenderness to the right knee) Neurologic/Psychiatric: Alert, No Motor/Sensory Deficits, Normal Mood/Affect Skin: Normal Color, Warm/Dry Progress/Results/Core Measures Results/Orders Lab Results Laboratory Tests Test 05/02/17 03:00 05/02/17 06:30 Range/Units White Blood Count 9.0 4.3-11.0 10^3/uL Red Blood Count 4.16 L 4.35-5.85 10^6/uL Hemoglobin 12.1 L 13.3-17.7 G/DL Hematocrit 37 L 40-54 % Mean Corpuscular Volume 90 80-99 FL Mean Corpuscular Hemoglobin 29 25-34 PG Mean Corpuscular Hemoglobin Concent 32 32-36 G/DL Red Cell Distribution Width 14.5 10.0-14.5 % Platelet Count 227 130-400 10^3/uL Mean Platelet Volume 10.4 7.4-10.4 FL Neutrophils (%) (Auto) 66 42-75 % Lymphocytes (%) (Auto) 26 12-44 % Monocytes (%) (Auto) 6 0-12 % Eosinophils (%) (Auto) 2 0-10 % Basophils (%) (Auto) 0 0-10 % Neutrophils # (Auto) 6.0 1.8-7.8 X 10^3 Lymphocytes # (Auto) 2.3 1.0-4.0 X 10^3 Monocytes # (Auto) 0.5 0.0-1.0 X 10^3 Eosinophils # (Auto) 0.2 0.0-0.3 10^3/uL Basophils # (Auto) 0.0 0.0-0.1 10^3/uL Sodium Level 143 135-145 MMOL/L Potassium Level 3.6 3.6-5.0 MMOL/L Chloride Level 107 98-107 MMOL/L Carbon Dioxide Level 23 21-32 MMOL/L Anion Gap 13 5-14 MMOL/L Blood Urea Nitrogen 14 7-18 MG/DL Creatinine 1.11 0.60-1.30 MG/DL Estimat Glomerular Filtration Rate > 60 BUN/Creatinine Ratio 13 Glucose Level 157 H 70-105 MG/DL Calcium Level 9.0 8.5-10.1 MG/DL Magnesium Level 2.2 1.8-2.4 MG/DL Total Bilirubin 0.7 0.1-1.0 MG/DL Aspartate Amino Transf (AST/SGOT) 15 5-34 U/L Alanine Aminotransferase (ALT/SGPT) 13 0-55 U/L Alkaline Phosphatase 79 40-136 U/L Troponin I < 0.30 <0.30 NG/ML Total Protein 6.7 6.4-8.2 GM/DL Albumin 3.8 3.2-4.5 GM/DL Lipase 39 8-78 U/L Urine Color YELLOW Urine Clarity SLIGHTLY CLOUDY Urine pH 7 5-9 Urine Specific Blunt 1.010 L 1.016-1.022 Urine Protein NEGATIVE NEGATIVE Urine Glucose (UA) NEGATIVE NEGATIVE Urine Ketones NEGATIVE NEGATIVE Urine Nitrite NEGATIVE NEGATIVE Urine Bilirubin NEGATIVE NEGATIVE Urine Urobilinogen 1 NORMAL MG/DL Urine Leukocyte Esterase 2+ H NEGATIVE Urine RBC (Auto) NEGATIVE NEGATIVE Urine RBC NONE /HPF Urine WBC 2-5 /HPF Urine Squamous Epithelial Cells RARE /HPF Urine Crystals NONE /LPF Urine Bacteria LARGE H /HPF Urine Casts NONE /LPF Urine Mucus NEGATIVE /LPF Urine Culture Indicated YES My Orders Orders - GABRIEL CLARK MD Cbc With Automated Diff (05/02/17 02:51) Comprehensive Metabolic Panel (05/02/17 02:51) Lipase (05/02/17 02:51) Magnesium (05/02/17 02:51) Ua Culture If Indicated (05/02/17 02:51) Ns Iv 1000 Ml (Sodium Chloride 0.9%) (05/02/17 02:51) Ekg Tracing (05/02/17 02:51) O2 (05/02/17 02:51) Monitor-Rhythm Ecg Trace Only (05/02/17 02:51) Chest 1 View, Ap/Pa Only (05/02/17 02:51) Knee, Right, 3 Views (05/02/17 02:51) Troponin I (05/02/17 03:50) Urine Culture (05/02/17 06:30) Cephalexin Capsule (Keflex Capsule) (05/02/17 07:24) Medications Given in ED Current Medications Medications Dose Ordered Sig/[place] Route Start Time Stop Time Status Last Admin Dose Admin Sodium Chloride 1,000 ml @ 0 mls/hr Q0M ONCE IV 05/02/17 02:51 05/02/17 02:54 DC 05/02/17 03:09 999 MLS/HR Vital Signs/I&O Vital Sign - Last 12Hours 9/28/17 9/28/17 9/28/17 02:45 02:45 02:45 Temp 96.0 96.0 Pulse 61 61 Resp 16 16 B/P (MAP) 115/82 115/82 (93) Pulse Ox 93 93 93 O2 Delivery Nasal Cannula Nasal Cannula Nasal Cannula O2 Flow Rate 3.00 3.00 Progress Note : Progress Note Seen and evaluated. IV, labs, UA, normal saline 1 L bolus. Chest x-ray and right knee x-ray ordered. Monitor patient. 0430: Pending UA. 0715: UA complete and does show follow urinary tract infection. We will initiate outpatient therapy with Keflex with the first dose now. Patient is without any complaints. Discharged home with return precautions. Patient and caregiver verbalize understanding instructions and agreement with plan. ECG Initial ECG Impression Date: May 02, 2017 Initial ECG Impression Time: 02:53 Initial ECG Rate: 62 Initial ECG Rhythm: Normal Sinus Comment Sinus rhythm with LVH. No evidence of ST elevation DE. Normal axis. Interpreted by me. Moderate amount of artifact noted on EKG. Diagnostic Imaging Diagonstic Imaging: Xray Plain Films/CT/US/NM/MRI: chest Comments Cardiomegaly but no other acute finding. Reviewed: Reviewed by Me Diagonstic Imaging: Xray Plain Films/CT/US/NM/MRI: knee Comments Moderate degeneration but no fracture. Reviewed: Reviewed by Me Departure Impression Impression: Primary Impression: Urinary tract infection Qualified Codes: N30.00 - Acute cystitis without hematuria Additional Impression: Strain of right knee Qualified Codes: S86.911A - Strain of unspecified muscle(s) and tendon(s) at lower leg level, right leg, initial encounter Disposition: 01 HOME, SELF-CARE Condition: Stable Departure-Patient Inst. Referrals: BRENNAN CORONADO MD (PCP) Primary Care Physician VAUGHN MONTIEL (Family) Primary Care Physician Patient Instructions: Intensity Modulated Radiation Therapy, Urinary Tract Infection, Adult (DC) Add. Discharge Instructions: Continue previous medications as directed. Initiate antibiotic therapy as directed. Drink plenty of fluids. Follow-up with your DrCuca in a few days for recheck. Return for worse pain, fever, vomiting, weakness, breathing problems or other concerns as needed. Scripts Cephalexin (Cephalexin) 500 Mg Tablet 500 MG PO BID, #14 TAB 0 Refills Prov: GABRIEL CLARK MD 05/02/17 GABRIEL CLARK MD May 02, 2017 04:01
[2017-05-02 06:44] LABS: BILIRUBIN,URINE NEGATIVE (NEGATIVE); KETONES,URINE NEGATIVE (NEGATIVE); LEUKOCYTE ESTERASE ,URINE 2+ (NEGATIVE); NITRITE,URINE NEGATIVE (NEGATIVE); PH,URINE 7 (5-9); PROTEIN,URINE NEGATIVE (NEGATIVE); UROBILINOGEN,URINE 1 MG/DL (NORMAL)
[2017-05-02 06:52] LABS: SQUAMOUS EPITHELIAL CELL,UR RARE /HPF
[2017-05-02] MEDS ORDERED: CEPHALEXIN 250 MG (KEFLEX) CAP PO STA (07:24)
--- NOTE | 2017-05-02 07:24 | Diagnostic Imaging Report ---
EXAMINATION: Right knee at 3:20 AM INDICATION: Knee pain Three views were obtained. There is no fracture, dislocation or acute bony abnormality evident. 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 The degenerative changes have progressed since the prior right femur exam of 10/07/06. There is also chondrocalcinosis of the lateral meniscus and there is mild narrowing of the lateral compartment of the knee joint as well as the patellofemoral space. The soft tissues are unremarkable. IMPRESSION: 1. There is no evidence for an acute bony abnormality. 2. 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 Dictated by: Dictated on workstation # [id number]
[2017-05-02] MEDS ORDERED: CEPH500T PO (07:31)
--- NOTE | 2017-05-02 07:42 | Diagnostic Imaging Report ---
Portable erect AP chest at 3:18 a.m. INDICATION: Chest pain. FINDINGS: The cardiomegaly and the chronic pulmonary changes evident on the prior exam of 10/13/2016 are again visualized and essentially no different. There is no sign of failure, pneumonia or of a pleural effusion although the left retrocardiac region is not well penetrated. The mediastinum is not widened. The osseous structures are intact. As noted on the prior exam, there is severe degenerative disease involving the right shoulder joint. There is also a linear lucency extending longitudinally through the right humeral head. This finding is unlikely to represent acute fracture but clinical followup is recommended. There are healed rib fractures bilaterally. IMPRESSION: 1. There is cardiomegaly and chronic pulmonary disease but there is no acute cardiopulmonary abnormality evident. The left retrocardiac region is not well penetrated, however. 2. If clinical concern regarding an acute cardiopulmonary abnormality persists, then a followup PA and lateral chest would be recommended. 3. The linear lucency extending longitudinally through the right humeral head is unlikely to be related to an acute fracture. Even so, clinical follow-up is recommended. Dictated by: Dictated on workstation # [id number]
[2017-05-02 07:51] VITALS: BP 144/86
== END 2017-05-02 07:54 | disposition home or self-care (01) ==
LOC: EDUNIT# 02:44 → ER 02:45
DX: Z04.3 Encounter for examination and observation following other accident (principal)
CPT/HCPCS: 36415; 71010; 73562; 80053; 81000; 83690; 83735; 84484; 85025; 87088; 93005; 93041; 96360; 96361